=== PATIENT | female | born 1965 | race Caucasian/White ===

== ENCOUNTER 2016-08-23 13:38 | Emergency (ER) | payer MEDICARE ==
--- NOTE | 2016-08-23 15:04 | Cat Scan Report ---
CT HEAD WITHOUT CONTRAST: HISTORY: Seizure. Serial contiguous axial images were obtained through the cranium. Intravenous contrast material was not administered. The ventricles are normal in size and appearance. There is no mass effect or midline shift. No areas of abnormally increased or decreased attenuation are seen. No mass lesion is seen. The mastoid air cells and visualized portions of the sinuses are normal. IMPRESSION: Cranial CT scan within normal limits.
[2016-08-23 15:19] LABS: Basophils % (Auto) 0.2 % (0.0-1.8); Eosinophils % (Auto) 0.1 % (0.0-4.3); Hemoglobin 16.5 gm/dl (10.1-14.3); Mean Corpuscular HGB Conc 34 % (30-34); Mean Corpuscular Hemoglobin 31 pg (28-32); Mean Corpuscular Volume 89 fl (79-97); Platelet Count 247 K/mm3 (140-440); Red Blood Count 5.38 M/mm3 (3.65-5.03); Red Cell Distribution Width 13.7 % (13.2-15.2); White Blood Count 19.6 K/mm3 (4.5-11.0)
[2016-08-23 15:36] LABS: Anion Gap 20 mmol/L; BUN/Creatinine Ratio 18.33; Blood Urea Nitrogen 11 mg/dL (7-17); Calcium 9.7 mg/dL (8.4-10.2); Carbon Dioxide 25 mmol/L (22-30); Chloride 88.8 mmol/L (98-107); Glucose 102 mg/dL (65-100); Potassium 3.3 mmol/L (3.6-5.0); Sodium 130 mmol/L (137-145)
--- NOTE | 2016-08-23 15:44 | Emergency Department Report ---
ED Seizure HPI - General Chief Complaint: Seizure Stated Complaint: SEIZURE Time Seen by Provider: 08/23/16 15:19 Source: patient, EMS Mode of arrival: Stretcher Limitations: No Limitations - History of Present Illness Initial Comments: 51-year-old female presents to the emergency department via EMS from [place] for evaluation of seizure. Per report, the patient was walking outside when she had a single witnessed seizure. Patient fell to the ground, reportedly hitting her head. Generalized tonic-clonic activity was described. Patient denies history of seizures. At this time, patient has no complaints. EMS administered IM Ativan prior to arrival. MD Complaint: seizure -: Sudden, This afternoon Description of Episode: tonic-clonic movement Witnessed:: Yes Trauma: No Seizure History: none Place: other ([place]) Possible Precipitating Event: none Associated Symptoms: denies other symptoms Treatments Prior to Arrival: benzodiazepines - Related Data Home Medications Medication Instructions Recorded Confirmed Last Taken Escitalopram Oxalate [Lexapro] 5 mg PO DAILY 08/23/16 08/23/16 08/23/16 Thiothixene (Nf) [Navane] 5 mg PO DAILY 08/23/16 08/23/16 08/23/16 hydrOXYzine PAMOATE [Vistaril] 25 mg PO Q6HR 08/23/16 08/23/16 Unknown Allergies Allergy/AdvReac Type Severity Reaction Status Date / Time ibuprofen [From Motrin] Allergy Unknown Verified 08/23/16 13:59 ED Review of Systems ROS: Stated complaint: SEIZURE Other details as noted in HPI Comment: All other systems reviewed and negative Neurological: as per HPI (seizure) ED Past Medical Hx - Past Medical History Previous Medical History?: Yes Hx Psychiatric Treatment: Yes (SCHIZOPHRENIA) - Surgical History Past Surgical History?: Yes Additional Surgical History: - Family History Family history: no significant - Social History Smoking Status: Current Every Day Smoker Substance Use Type: None - Medications Home Medications: Home Medications Medication Instructions Recorded Confirmed Last Taken Type Escitalopram Oxalate [Lexapro] 5 mg PO DAILY 08/23/16 08/23/16 08/23/16 History Thiothixene (Nf) [Navane] 5 mg PO DAILY 08/23/16 08/23/16 08/23/16 History hydrOXYzine PAMOATE [Vistaril] 25 mg PO Q6HR 08/23/16 08/23/16 Unknown History ED Physical Exam - General Limitations: No Limitations General appearance: alert, in no apparent distress - Head Head exam: Present: atraumatic, normocephalic - Eye Eye exam: Present: normal appearance, PERRL, EOMI - ENT ENT exam: Present: normal exam, mucous membranes moist, other (left lateral aspect of tongue shows evidence of biting. No active bleeding noted.) - Neck Neck exam: Present: normal inspection, full ROM. Absent: tenderness - Respiratory Respiratory exam: Present: normal lung sounds bilaterally. Absent: respiratory distress - Cardiovascular Cardiovascular Exam: Present: regular rate, normal rhythm, normal heart sounds - GI/Abdominal GI/Abdominal exam: Present: soft, normal bowel sounds. Absent: distended, tenderness - Extremities Exam Extremities exam: Present: normal inspection, full ROM. Absent: tenderness - Back Exam Back exam: Present: normal inspection, full ROM. Absent: tenderness - Neurological Exam Neurological exam: Present: alert, oriented X3. Absent: motor sensory deficit - Skin Skin exam: Present: warm, dry, intact ED Course Vital Signs 08/23/16 08/23/16 08/23/16 14:25 14:35 16:02 Temperature 98 F 98.0 F Pulse Rate 95 H 89 Respiratory 20 16 20 Rate Blood Pressure 107/69 118/72 [Left] O2 Sat by Pulse 88 88 95 Oximetry ED Medical Decision Making - Lab Data Result diagrams: 08/23/16 15:04 08/23/16 15:04 - Radiology Data Radiology results: report reviewed CT of the head shows no acute intracranial abnormality. - Medical Decision Making Lab and imaging results reviewed and discussed with the patient. Patient has had no further seizure activity in the emergency department. There is no indication for initiation of anti-seizure medication at this time. Patient will be discharged back to [place] at this time. - Differential Diagnosis new onset seizure, electrolyte abnormality, withdrawal seizure Critical care attestation.: If time is entered above; I have spent that time in minutes in the direct care of this critically ill patient, excluding procedure time. ED Disposition Clinical Impression: Seizure Disposition: DC/TX PSY HOSP/PSY UNIT Is pt being admited?: No Condition: Stable Instructions: New-Onset Seizure in Adults (ED) Referrals: PRIMARY CARE, [Primary Care Provider] - 3-5 Days Time of Disposition: 17:49
[2016-08-23] MEDS ORDERED: NACL 0.9% 1000 ML 1,000 ML IV ONE (16:03)
[2016-08-23 18:27] VITALS: BP 132/80
== END 2016-08-24 00:21 ==
LOC: ED 13:38
DX: R56.9 Unspecified convulsions (principal); F20.9 Schizophrenia, unspecified; F17.200 Nicotine dependence, unspecified, uncomplicated; Z88.6 Allergy status to analgesic agent
CPT/HCPCS: 36415; 70450; 80048; 85025; 96360; 99285; J7030; 82962